=== PATIENT | female | born 1935 | race Caucasian/White ===

== ENCOUNTER 2018-05-10 12:26 | Outpatient (CLI) | payer MEDICARE, BC | END 2018-05-10 12:27 | disposition home or self-care (01) | LOC: BICMAMMO 12:26 | PROVIDERS: ATTEND Family Medicine | DX: Z12.31 Encounter for screening mammogram for malignant neoplasm of breast (principal); R92.1 Mammographic calcification found on diagnostic imaging of breast; Z80.3 Family history of malignant neoplasm of breast | CPT/HCPCS: 77063; 77067 ==

== ENCOUNTER 2018-12-11 11:00 | Outpatient (CLI) | payer MEDICARE, BC ==
--- NOTE | 2018-12-11 11:55 | RAD ---
RIGHT HIP TWO VIEWS: HISTORY: Right hip pain. Fall. FINDINGS: Degenerative changes are present. No acute fracture or dislocation is identified. POS: [facility]
== END 2018-12-11 11:01 | disposition home or self-care (01) ==
LOC: BICRAD 11:00
PROVIDERS: ATTEND Family Medicine
DX: M25.551 Pain in right hip (principal); M16.11 Unilateral primary osteoarthritis, right hip

== ENCOUNTER 2019-06-15 13:38 | Outpatient (CLI) | payer MEDICARE, BC ==
--- NOTE | 2019-06-15 14:17 | MMO ---
Bilateral MAMMO Bilat Screen [facility]. CLINICAL HISTORY: Patient is 83 years old and is seen for screening. The patient has the following family history of breast cancer: sister and daughter. The patient has no personal history of cancer. VIEWS: The views performed were: bilateral craniocaudal with tomosynthesis and bilateral mediolateral oblique with tomosynthesis. FILMS COMPARED: The present examination has been compared to prior imaging studies performed at [facility] on 01/21/2016, 03/23/2017, 04/04/2017 and 05/10/2018. This study has been interpreted with the assistance of computer-aided detection. MAMMOGRAM FINDINGS: There are scattered fibroglandular densities. There are stable benign appearing calcifications seen in both breasts. There are also vascular calcifications. There are no suspicious masses, suspicious calcifications, or new areas of architectural distortion. IMPRESSION: THERE IS NO MAMMOGRAPHIC EVIDENCE OF MALIGNANCY. A ROUTINE FOLLOW-UP MAMMOGRAM IN 1 YEAR IS RECOMMENDED. THE RESULTS OF THIS EXAM WERE SENT TO THE PATIENT. ACR BI-RADS Category 2 - Benign finding MAMMOGRAPHY NOTE: 1. A negative mammogram report should not delay a biopsy if a dominant of clinically suspicious mass is present. 2. Approximately 10% to 15% of breast cancers are not detected by mammography. 3. Adenosis and dense breasts may obscure an underlying neoplasm. Reported by: PADMINI MORGAN MD Electonically Signed: [id number]
== END 2019-06-15 13:39 | disposition home or self-care (01) ==
LOC: BICMAMMO 13:38
DX: Z12.31 Encounter for screening mammogram for malignant neoplasm of breast (principal); Z80.3 Family history of malignant neoplasm of breast
CPT/HCPCS: 77063; 77067

== ENCOUNTER 2019-06-19 08:45 | Outpatient (CLI) | payer MEDICARE, BC ==
--- NOTE | 2019-06-19 09:30 | BD ---
EXAM: DEXA bone density examination HISTORY: 83-year-old postmenopausal female for screening COMPARISON: None FINDINGS: L1--bone mineral density 0.700 g/sq cm; T score -2.6 L2--bone mineral density 0.732 g/sq cm; T score -2.7 L3--bone mineral density 0.801 g/sq cm; T score -2.6 L4--bone mineral density 0.826 g/sq cm; T score -2.1 Total L1-L4--bone mineral density 0.771 g/sq cm; T score -2.5 Left femoral neck--bone mineral density0.612; T score -2.1 Total proximal left femur--bone mineral density 0.692; T score -2.0 IMPRESSION: Osteoporosis
== END 2019-06-19 08:46 | disposition home or self-care (01) ==
LOC: BICMAMMO 08:45
DX: M81.0 Age-related osteoporosis without current pathological fracture (principal); Z79.890 Hormone replacement therapy
CPT/HCPCS: 77080

== ENCOUNTER 2020-06-18 09:03 | Outpatient (CLI) | payer MEDICARE, BC ==
--- NOTE | 2020-06-18 09:30 | MMO ---
Bilateral MAMMO Bilat Screen [facility]. CLINICAL HISTORY: Patient is 84 years old and is seen for screening. The patient has the following family history of breast cancer: sister and daughter. The patient has no personal history of cancer. VIEWS: The views performed were: bilateral craniocaudal with tomosynthesis and bilateral mediolateral oblique with tomosynthesis. FILMS COMPARED: The present examination has been compared to prior imaging studies performed at [facility] on 03/23/2017, 04/04/2017, 05/10/2018 and 06/15/2019. This study has been interpreted with the assistance of computer-aided detection. MAMMOGRAM FINDINGS: There are scattered fibroglandular densities. There are vascular calcifications seen in both breasts. There are no suspicious masses, suspicious calcifications, or new areas of architectural distortion. IMPRESSION: A ROUTINE FOLLOW-UP MAMMOGRAM IN 1 YEAR IS RECOMMENDED. THE RESULTS OF THIS EXAM WERE SENT TO THE PATIENT. ACR BI-RADS Category 2 - Benign finding MAMMOGRAPHY NOTE: 1. A negative mammogram report should not delay a biopsy if a dominant of clinically suspicious mass is present. 2. Approximately 10% to 15% of breast cancers are not detected by mammography. 3. Adenosis and dense breasts may obscure an underlying neoplasm. Reported by: TATIANNA PA MD Electonically Signed: [id number]
== END 2020-06-18 09:04 | disposition home or self-care (01) ==
LOC: BICMAMMO 09:03
DX: Z12.31 Encounter for screening mammogram for malignant neoplasm of breast (principal); Z80.3 Family history of malignant neoplasm of breast
CPT/HCPCS: 77063; 77067

== ENCOUNTER 2020-12-10 15:44 | Outpatient (CLI) | payer MEDICARE, BC | END 2020-12-10 15:45 | disposition home or self-care (01) | LOC: BICRAD 15:44 | DX: S59.901A Unspecified injury of right elbow, initial encounter (principal); M25.521 Pain in right elbow; M25.551 Pain in right hip; M79.604 Pain in right leg; W19.XXXA Unspecified fall, initial encounter ==

== ENCOUNTER 2021-09-22 10:22 | Outpatient (CLI) | payer MEDICARE, BC | END 2021-09-22 10:23 | disposition home or self-care (01) | LOC: BICMAMMO 10:22 | PROVIDERS: ATTEND Nurse Practitioner Family | DX: Z12.31 Encounter for screening mammogram for malignant neoplasm of breast (principal); Z80.3 Family history of malignant neoplasm of breast | CPT/HCPCS: 77063; 77067 ==

== ENCOUNTER 2022-12-21 10:04 | Outpatient (CLI) | payer MEDICARE, BC | END 2022-12-21 10:05 | disposition home or self-care (01) | LOC: BICMAMMO 10:04 | PROVIDERS: ATTEND Nurse Practitioner Family | DX: Z12.31 Encounter for screening mammogram for malignant neoplasm of breast (principal); R92.8 Other abnormal and inconclusive findings on diagnostic imaging of breast | CPT/HCPCS: 77063; 77067 ==

== ENCOUNTER 2022-12-27 13:21 | Outpatient (CLI) | payer MEDICARE, BC | END 2022-12-27 13:22 | disposition home or self-care (01) | LOC: BICMAMMO 13:21 | PROVIDERS: ATTEND Nurse Practitioner Family | DX: N64.89 Other specified disorders of breast (principal) | CPT/HCPCS: 77065; G0279 ==

== ENCOUNTER 2023-06-02 08:13 | Outpatient (CLI) | payer MEDICARE, BC | END 2023-06-02 08:14 | disposition home or self-care (01) | LOC: RAD 08:13 | PROVIDERS: ATTEND Internal Medicine Critical Care Medicine | DX: R06.00 Dyspnea, unspecified (principal) | CPT/HCPCS: 71046 ==